=== PATIENT | female | born 1950 | race Caucasian/White ===

== ENCOUNTER → 2016-09-03 | Outpatient (CLI) | payer BC ==
[~2016-09-03] MED LIST: CINN500C14 PO; FURO20TA4 PO; HYDR-4010 PO; LISI10TA7 PO; MELO15TA12 PO; METF500T4 PO; METO50TA5 PO; MULT1TAB69 PO; PRAV20TA4 PO; RIVA20TA PO; TRIA1TAB93 PO; [UNRECOGNIZED DRUG - CODE] PO
== END ==
LOC: WC.BC 12:45
DX: Z12.31 Encounter for screening mammogram for malignant neoplasm of breast (principal)
CPT/HCPCS: 77063; G0202

== ENCOUNTER → 2016-09-09 | Outpatient (CLI) | payer BC ==
--- NOTE | 2016-09-09 15:26 | DI ---
Indication: ITS.REASON: M25.561 PAIN IN RT KNEE PROCEDURE: KNEE RIGHT 3 VIEWS: Encounter: Initial Comparison: Right tibia and fibula radiographs dated September 02, 2014 Findings: There is no acute fracture, dislocation or malalignment identified. Severe lateral and mild medial compartment joint space narrowing. Tricompartmental osteophyte formation with mild narrowing of the patellofemoral compartment. Impression: No acute fracture. .
== END ==
LOC: IMA 14:51
PROVIDERS: ATTEND Family Medicine
DX: M25.561 Pain in right knee (principal)